=== PATIENT | female | born 1990 | race Hispanic/Latino ===

== ENCOUNTER 2017-11-12 15:40 | Observation (INO) | payer OTHER, MEDICAID ==
[~2017-11-12 15:40] MED LIST: ETON68IM3 SQ
[2017-11-12 16:52] VITALS: BP 106/62
== END 2017-11-12 17:55 | disposition home or self-care (01) ==
LOC: LDH 15:40
PROVIDERS: ADMIT Specialist; ATTEND Specialist
DX: O60.02 Preterm labor without delivery, second trimester (principal); Z3A.26 26 weeks gestation of pregnancy
CPT/HCPCS: G0378 ×3; 96360

== ENCOUNTER 2017-11-17 11:41 | Observation (INO) | payer OTHER, MEDICAID ==
[~2017-11-17] VITALS: Ht 149.9 cm; Wt 67.6 kg
[2017-11-17] MEDS: LACTATED RINGERS 1000ML IV SCH ×3 (13:10→16:40)
[2017-11-17] MEDS ORDERED: TERBUTALINE SULFATE VIAL 1MG/ML SQ SCH (14:00)
[2017-11-17] MEDS ORDERED: TERBUTALINE SULFATE VIAL 1MG/ML SQ ONE (14:02)
[2017-11-17 15:25] LABS: APPEARANCE,URINE Clear (CLEAR); BILIRUBIN,URINE Negative (NEGATIVE); COLOR,URINE Yellow (YELLOW); GLUCOSE, URINE (UA) Negative (NEGATIVE); KETONES,URINE 40 mg/dL (NEGATIVE); LEUKOCYTE ESTERASE ,URINE Negative (NEGATIVE); NITRATE,URINE Negative (NEGATIVE); OCCULT BLOOD,URINE Negative (NEGATIVE); PROTEIN,URINE Negative (NEGATIVE)
[2017-11-17] MEDS ORDERED: MAGNESIUM SULFATE 1,000 ML IV PRN (16:16)
[2017-11-17] MEDS ORDERED: MAGNESIUM 4GM PREMIX 100ML 100 ML IV ONE (16:25)
[2017-11-17] MEDS ORDERED: AMPICILLIN 2GM+NS 100ML 100 ML IV ONE (16:25)
[2017-11-17] MEDS ORDERED: DEXAMETHASONE SOD PHOSPHATE 4 MG/ML 1ML VIAL ONE (16:25)
[2017-11-17] MEDS ORDERED: MAGNESIUM SULFATE 1,000 ML IV ONE (16:26)
[2017-11-17] MEDS ORDERED: CALCIUM GLUCONATE 1 GM/10 ML VIAL IV PRN (16:30)
[2017-11-17 16:31] LABS: HEMATOCRIT 36.3 % (36-48); MEAN CORPUSCULAR HEMOGLOBIN 30.2 pg (27.0-33.0); MEAN CORPUSCULAR HGB CONC 33.3 g/dL (32.0-36.0); MEAN CORPUSCULAR VOLUME 90.6 fL (79-99); PLATELET COUNT (AUTO) 163 K/uL (130-400); RED BLOOD CELL COUNT(AUTO) 4.01 MIL/uL (4.00-5.50); WHITE BLOOD COUNT (AUTO) 12.8 K/uL (4.8-10.8)
[2017-11-17] MEDS: DEXAMETHASONE SOD PHOSPHATE 4 MG/ML 1ML VIAL IM SCH ×2 (16:45→22:57)
[2017-11-17] MEDS ORDERED: MAGNESIUM 4GM PREMIX 100ML 100 ML IV SCH (17:00)
[2017-11-17] MEDS ORDERED: ACETAMINOPHEN-CODEINE 300/30MG TAB ONE (19:57)
[2017-11-17] MEDS ORDERED: ACETAMINOPHEN-CODEINE 300/30MG TAB PO ONE (21:40)
[2017-11-17] MEDS: AMPICILLIN 2GM+NS 100ML 100 ML IV SCH (22:50)
[2017-11-18] MEDS: AMPICILLIN 2GM+NS 100ML 100 ML IV SCH (04:54)
[2017-11-18] MEDS: DEXAMETHASONE SOD PHOSPHATE 4 MG/ML 1ML VIAL IM SCH ×2 (04:55→10:45)
[2017-11-19 07:30] LABS: HEPATITIS Bs ANTIGEN SCREEN P Negative (Negative)
== END 2017-11-18 12:50 | disposition home or self-care (01) ==
LOC: UNDOADMOB 11:41 → LDH 11:41
PROVIDERS: ADMIT Specialist; ATTEND Specialist
DX: O62.9 Abnormality of forces of labor, unspecified (principal); Z3A.27 27 weeks gestation of pregnancy
CPT/HCPCS: 36415 ×2; 81003; 83735 ×3; 85027; 86592; 86850; 86900; 86901; 87340; 96365; 96366; 96372 ×2; G0378 ×26; J0290 ×3; J1100 ×4; J3105; J3475 ×2; J7120; 96360; 96361

== ENCOUNTER 2017-12-13 23:02 | Observation (INO) | payer OTHER, MEDICAID ==
[~2017-12-13] VITALS: Ht 149.9 cm; Wt 70.8 kg
[2017-12-13 23:45] LABS: APPEARANCE,URINE SLIGHTLY CLOUDY (CLEAR); BILIRUBIN,URINE Negative (NEGATIVE); COLOR,URINE Yellow (YELLOW); GLUCOSE, URINE (UA) Negative (NEGATIVE); KETONES,URINE Trace mg/dL (NEGATIVE); LEUKOCYTE ESTERASE ,URINE Small (NEGATIVE); NITRATE,URINE Negative (NEGATIVE); OCCULT BLOOD,URINE Negative (NEGATIVE); PH,URINE 5.5 (5.0-8.0); PROTEIN,URINE Negative (NEGATIVE)
[2017-12-13 23:52] LABS: BACTERIA,URINE Moderate /HPF (None Seen); CALCIUM OXALATE CRYSTALS,UR Few /LPF (None Seen); MUCUS,URINE Rare LPF (None Seen); RBC,URINE 0-1 /HPF (0-1)
[2017-12-13 23:53] LABS: AMPHET/METH SCREEN,URINE NEGATIVE (NEGATIVE); BARBITURATE SCREEN, URINE NEGATIVE (NEGATIVE); BENZODIAZEPINES SCREEN,URINE NEGATIVE (NEGATIVE); CANNABINOID SCREEN,URINE NEGATIVE (NEGATIVE); COCAINE SCREEN,URINE NEGATIVE (NEGATIVE); OPIATE SCREEN,URINE NEGATIVE (NEGATIVE); PHENCYCLIDINE SCREEN,URINE NEGATIVE (NEGATIVE)
[2017-12-14] MEDS ORDERED: LACTATED RINGERS 1000ML 1,000 ML IV ONE (00:50)
[2017-12-14] MEDS ORDERED: PROMETHAZINE HCL 25 MG/ML 1ML AMPULE IM ONE (00:51)
[2017-12-14] MEDS ORDERED: AMPICILLIN 2GM+NS 100ML 100 ML IV SCH (01:00)
[2017-12-14] MEDS ORDERED: DEXTROSE 5 %-0.45 % NACL 1,000 ML IV SCH (01:00)
[2017-12-14] MEDS ORDERED: PROMETHAZINE HCL 25 MG/ML 1ML AMPULE IM SCH (01:00)
[2017-12-14] MEDS ORDERED: LACTATED RINGERS 1000ML IV SCH (01:00)
[2017-12-14] MEDS ORDERED: AMPICILLIN 2GM+NS 100ML 100 ML IV ONE (01:11)
[2017-12-14] MEDS ORDERED: OXYTOCIN 10 USP UNITS/ML ONE (06:55)
== END 2017-12-14 08:52 | disposition home or self-care (01) ==
LOC: EDH 23:02 → LDH 23:03
PROVIDERS: ADMIT Specialist; ATTEND Specialist
DX: O60.03 Preterm labor without delivery, third trimester (principal); O26.893 Other specified pregnancy related conditions, third trimester; R10.2 Pelvic and perineal pain; Z3A.31 31 weeks gestation of pregnancy; Z79.899 Other long term (current) drug therapy
CPT/HCPCS: 80305; 81001; 96365; 96372; 99285; G0378 ×10; J0290; J2550; J2590; J7120; 96360; 96361

== ENCOUNTER 2018-01-18 21:27 | Observation (INO) | payer OTHER, MEDICAID ==
[~2018-01-18] VITALS: Ht 149.9 cm; Wt 74.4 kg
[2018-01-18 22:02] LABS: APPEARANCE,URINE Clear (CLEAR); BILIRUBIN,URINE Negative (NEGATIVE); COLOR,URINE Yellow (YELLOW); GLUCOSE, URINE (UA) Negative (NEGATIVE); KETONES,URINE Negative (NEGATIVE); LEUKOCYTE ESTERASE ,URINE Negative (NEGATIVE); NITRATE,URINE Negative (NEGATIVE); OCCULT BLOOD,URINE Negative (NEGATIVE); PROTEIN,URINE Negative (NEGATIVE)
[2018-01-18 22:09] LABS: AMPHET/METH SCREEN,URINE NEGATIVE (NEGATIVE); BARBITURATE SCREEN, URINE NEGATIVE (NEGATIVE); BENZODIAZEPINES SCREEN,URINE NEGATIVE (NEGATIVE); CANNABINOID SCREEN,URINE NEGATIVE (NEGATIVE); COCAINE SCREEN,URINE NEGATIVE (NEGATIVE); OPIATE SCREEN,URINE NEGATIVE (NEGATIVE); PHENCYCLIDINE SCREEN,URINE NEGATIVE (NEGATIVE)
== END 2018-01-18 23:10 | disposition home or self-care (01) ==
LOC: EDH 21:27 → LDH 21:28
PROVIDERS: ADMIT Specialist; ATTEND Specialist
DX: O42.913 Preterm premature rupture of membranes, unspecified as to length of time between rupture and onset of labor, third trimester (principal); Z3A.36 36 weeks gestation of pregnancy; Z79.899 Other long term (current) drug therapy
CPT/HCPCS: 76815; 80305; 81003; 99284; G0378 ×2